=== PATIENT | female | born 1960 | race Caucasian/White ===

== ENCOUNTER 2017-03-18 11:54 | Emergency (ER) | payer MEDICARE, MEDICAID ==
[~2017-03-18] VITALS: Ht 134.6 cm; Wt 65.3 kg
[2017-03-18 12:00] VITALS: BP 134/77
[2017-03-18] MEDS ORDERED: CHLO1LIQ PO (12:32)
[2017-03-18] MEDS ORDERED: [UNRECOGNIZED DRUG - CODE] PO (12:32)
[2017-03-18] MEDS ORDERED: ACET500C3 PO (12:32)
[2017-03-18] MEDS ORDERED: MULT9LIQ3 PO (12:32)
[2017-03-18] MEDS ORDERED: VALP500S PO (12:32)
[2017-03-18] MEDS ORDERED: BENZ1TAB61 PO (12:32)
[2017-03-18] MEDS ORDERED: RANI150T4 PO (12:32)
[2017-03-18] MEDS ORDERED: RISP2TAB3 PO ×2 (12:32)
[2017-03-18] MEDS ORDERED: METO25TA35 PO (12:32)
[2017-03-18] MEDS ORDERED: NIAC500T9 PO (12:32)
[2017-03-18] MEDS ORDERED: SERT100T5 PO (12:32)
== END 2017-03-18 13:35 | disposition home or self-care (01) ==
LOC: ED 12:20
DX: S09.90XA Unspecified injury of head, initial encounter (principal); I10 Essential (primary) hypertension; E78.5 Hyperlipidemia, unspecified; W01.0XXA Fall on same level from slipping, tripping and stumbling without subsequent striking against object, initial encounter; Y93.89 Activity, other specified; Y92.009 Unspecified place in unspecified non-institutional (private) residence as the place of occurrence of the external cause; Y99.9 Unspecified external cause status
CPT/HCPCS: 70450; 99284

== ENCOUNTER → 2018-04-02 | Outpatient (CLI) | payer MEDICARE, MEDICAID ==
[~2018-04-02] MED LIST: ACET500C3 PO; BENZ1TAB61 PO; CALC-690 PO; CHLO1LIQ PO; METO25TA35 PO; MULT9LIQ3 PO; NIAC500T9 PO; RANI150T4 PO; RISP2TAB3 PO; SERT100T5 PO; VALP500S PO
== END ==
LOC: STAR 14:17
PROVIDERS: ATTEND Internal Medicine Gastroenterology
DX: Z02.9 Encounter for administrative examinations, unspecified (principal)

== ENCOUNTER 2018-04-10 06:58 | Day surgery (SDC) | payer MEDICARE, MEDICAID ==
[~2018-04-10] VITALS: Ht 152.4 cm; Wt 68.1 kg
[2018-04-10] MEDS ORDERED: LACTATED RINGERS 1,000 ML IV SCH (07:27)
[2018-04-10 07:37] VITALS: BP 135/74
[2018-04-10] MEDS ORDERED: PROPOFOL 50 ML ONE (09:13)
[2018-04-10] MEDS ORDERED: MIDAZOLAM 1 MG/ML, 2ML ONE (09:13)
[2018-04-10] MEDS ORDERED: DEXAMETHASONE 4 MG/ML, 5ML ONE (09:22)
[2018-04-10] MEDS ORDERED: KETOROLAC 30 MG/1 ML ONE (09:22)
[2018-04-10] MEDS ORDERED: FENTANYL PF 100 MCG/2ML IV PRN (10:00)
[2018-04-10] MEDS ORDERED: ACETAMINOPHEN 325 MG TABLET PO PRN (10:00)
[2018-04-10] MEDS ORDERED: MEPERIDINE/PF 25MG/0.5ML IVPush PRN (10:00)
[2018-04-10] MEDS ORDERED: HALOPERIDOL 5 MG/ML IV PRN (10:00)
[2018-04-10] MEDS ORDERED: PROMETHAZINE 25 MG/ML, 1ML IV PRN (10:00)
[2018-04-10] MEDS ORDERED: ALBUTEROL SULFATE 2.5 MG/3 ML NPPB PRN (10:00)
[2018-04-10] MEDS ORDERED: hydrALAzine 20 MG/ML, 1ML IV PRN (10:00)
[2018-04-10] MEDS ORDERED: ONDANSETRON ODT 8 MG PO PRN (10:00)
[2018-04-10] MEDS ORDERED: HYDROcodone/APAP 7.5-325MG/15ML UDC PO PRN (10:00)
[2018-04-10] MEDS ORDERED: LABETALOL 5MG/ML, 20ML IV PRN (10:00)
[2018-04-10] MEDS ORDERED: MIDAZOLAM 1 MG/ML, 2ML IV PRN (10:00)
[2018-04-10] MEDS ORDERED: OXYcodone 5 MG/5 ML ORAL.SOL UDC PO PRN (10:00)
[2018-04-10] MEDS ORDERED: EPHEDRINE 50 MG/ML, 1ML IVPush PRN (10:00)
== END 2018-04-10 11:30 ==
LOC: OUT 06:58
PROVIDERS: ATTEND Internal Medicine Gastroenterology
DX: K52.9 Noninfective gastroenteritis and colitis, unspecified (principal); K64.8 Other hemorrhoids; K21.9 Gastro-esophageal reflux disease without esophagitis; F41.9 Anxiety disorder, unspecified; E78.5 Hyperlipidemia, unspecified; Z87.39 Personal history of other diseases of the musculoskeletal system and connective tissue; F95.2 Tourette's disorder; Z80.0 Family history of malignant neoplasm of digestive organs; Z98.890 Other specified postprocedural states
CPT/HCPCS: 45380; 88305; J1100; J1885; J2250; J2704; J7120